=== PATIENT | female | born 1965 | race African-American/Black ===

== ENCOUNTER 2016-12-12 17:05 | Emergency (ER) | payer OTHER ==
[~2016-12-12] VITALS: Ht 170.2 cm; Wt 115.1 kg
[~2016-12-12 17:05] MED LIST: HYDR25TA6 PO
[2016-12-12 17:07] VITALS: BP 173/105
[2016-12-12] MEDS ORDERED: OXYcodone/APAP 5/325MG TABLET ONE (17:24)
[2016-12-12] MEDS ORDERED: ONDANSETRON ODT 4 MG ONE (17:24)
[2016-12-12] MEDS ORDERED: OXYcodone/APAP 5/325MG TABLET PO ONE (17:30)
[2016-12-12] MEDS ORDERED: ONDANSETRON 2MG/ML, 2ML IVPush ONE (17:30)
[2016-12-12] MEDS ORDERED: ONDANSETRON ODT 4 MG PO ONE (17:30)
== END 2016-12-12 18:34 | disposition home or self-care (01) ==
LOC: ED 18:11
DX: T20.16XA Burn of first degree of forehead and cheek, initial encounter (principal); T31.0 Burns involving less than 10% of body surface; I10 Essential (primary) hypertension; F17.200 Nicotine dependence, unspecified, uncomplicated; Z88.2 Allergy status to sulfonamides
CPT/HCPCS: 99283; Q0162

== ENCOUNTER 2018-04-08 20:38 | Emergency (ER) | payer OTHER ==
[~2018-04-08] VITALS: Ht 170.2 cm; Wt 119.7 kg
[2018-04-08] MEDS ORDERED: SODIUM CHLORIDE 0.9% 1,000 ML IV ONE (21:02)
[2018-04-08] MEDS ORDERED: SODIUM CHLORIDE FLUSH 10ML SYR IVF ONE (21:30)
[2018-04-08] MEDS ORDERED: ONDANSETRON 2MG/ML, 2ML IVPush ONE (21:30)
[2018-04-08] MEDS ORDERED: HYDROmorphone 2 MG/ML, 1ML IVPush PRN (21:30)
[2018-04-08] MEDS ORDERED: SODIUM CHLORIDE 0.9% 1,000ML IVBOLUS ONE (21:30)
[2018-04-08] MEDS ORDERED: HYDROmorphone 2 MG/ML, 1ML ONE (21:33)
[2018-04-08] MEDS ORDERED: ONDANSETRON 2MG/ML, 2ML ONE (21:33)
[2018-04-08 21:37] LABS: BASOPHILS # (AUTO) 0.02 x10^3/uL (0-0.1); BASOPHILS % (AUTO) 0 % (0-1); EOSINOPHILS # (AUTO) 0.02 x10^3/uL (0-0.4); EOSINOPHILS % (AUTO) 0 % (1-7); LYMPHOCYTES # (AUTO) 1.58 x10^3/uL (1-3.4); LYMPHOCYTES % (AUTO) 13 % (22-44); MD NO; MEAN CORPUSCULAR HEMOGLOBIN 25.8 pg (27.0-34.8); MEAN CORPUSCULAR HGB CONC 33.4 g/dL (32.4-35.8); MEAN CORPUSCULAR VOLUME 77.2 fL (80-100); MEAN PLATELET VOLUME 8.3 fL (7.4-10.4); MONOCYTES # (AUTO) 0.82 x10^3/uL (0.2-0.8); MONOCYTES % (AUTO) 7 % (2-9); NEUTROPHILS # (AUTO) 9.45 x10^3/uL (1.8-6.8); NEUTROPHILS % (AUTO) 80 % (42-75); PLATELET COUNT 259 x10^3/uL (130-400); RED BLOOD COUNT 5.28 x10^6/uL (3.82-5.3); RED CELL DISTRIBUTION WIDTH 15.1 % (9.6-15.2)
[2018-04-08 21:47] LABS: ALANINE AMINOTRANSFERASE 20 U/L (12-78); ANION GAP 10 mmol/L (5-15); CALCIUM 8.6 mg/dL (8.5-10.1); CHLORIDE 104 mmol/L (98-107); CREATININE 0.89 mg/dL (0.55-1.02)
[2018-04-08 21:50] LABS: ALKALINE PHOSPHATASE 80 U/L (45-117); BILIRUBIN,TOTAL 0.6 mg/dL (0.2-1.0); TOTAL PROTEIN 7.4 g/dL (6.4-8.2)
[2018-04-08] MEDS ORDERED: ACETAMINOPHEN 500 MG TABLET ONE (22:42)
[2018-04-08 22:56] LABS: MICROSCOPIC INDICATED
[2018-04-08] MEDS ORDERED: ACETAMINOPHEN 500 MG TABLET PO ONE (23:00)
[2018-04-08 23:27] LABS: CULTURE INDICATED? NO
[2018-04-08 23:58] VITALS: BP 100/56
== END 2018-04-09 00:01 | disposition home or self-care (01) ==
LOC: ED 22:59
DX: N23 Unspecified renal colic (principal); R31.9 Hematuria, unspecified; B34.9 Viral infection, unspecified; I10 Essential (primary) hypertension
CPT/HCPCS: 36415; 74176; 80053; 81001; 83690; 85025; 93005; 96361; 96374; 96375; 99285; J1170; J2405; J7030

== ENCOUNTER 2020-01-05 20:46 | Emergency (ER) | payer OTHER ==
[~2020-01-05] VITALS: Ht 170.2 cm; Wt 104.0 kg
[2020-01-05 20:48] VITALS: BP 139/64
[2020-01-05] MEDS ORDERED: APAP/CODEINE 300/30MG TABLET ONE (21:14)
[2020-01-05] MEDS ORDERED: APAP/CODEINE 300/30MG TABLET PO PRN (21:30)
[2020-01-05 21:31] LABS: BASOPHILS # (AUTO) 0.02 x10^3/uL (0-0.1); BASOPHILS % (AUTO) 0 % (0-1); EOSINOPHILS # (AUTO) 0.33 x10^3/uL (0-0.4); EOSINOPHILS % (AUTO) 6 % (1-7); LYMPHOCYTES # (AUTO) 1.65 x10^3/uL (1-3.4); LYMPHOCYTES % (AUTO) 29 % (22-44); MD NO; MEAN CORPUSCULAR HEMOGLOBIN 27.1 pg (27.0-34.8); MEAN CORPUSCULAR HGB CONC 32.6 g/dL (32.4-35.8); MEAN CORPUSCULAR VOLUME 83.3 fL (80-100); MEAN PLATELET VOLUME 8.7 fL (7.4-10.4); MONOCYTES % (AUTO) 7 % (2-9); NEUTROPHILS # (AUTO) 3.36 x10^3/uL (1.8-6.8); NEUTROPHILS % (AUTO) 58 % (42-75); PLATELET COUNT 227 x10^3/uL (130-400); RED BLOOD COUNT 5.73 x10^6/uL (3.82-5.3); RED CELL DISTRIBUTION WIDTH 14.8 % (9.6-15.2)
[2020-01-05 21:37] LABS: ANION GAP 8 mmol/L (5-15); CHLORIDE 101 mmol/L (98-107); CREATININE 0.95 mg/dL (0.55-1.02)
[2020-01-05] MEDS ORDERED: POTASSIUM CHLORIDE 20 MEQ TAB.ER.PRT PO ONE (22:00)
[2020-01-05] MEDS ORDERED: POTASSIUM CHLORIDE 20 MEQ TAB.ER.PRT ONE (22:37)
== END 2020-01-05 22:40 | disposition home or self-care (01) ==
LOC: ED 21:16
DX: U07.1 COVID-19 (principal); J12.9 Viral pneumonia, unspecified; B34.9 Viral infection, unspecified; R50.9 Fever, unspecified; R05 Cough; M79.10 Myalgia, unspecified site; R51 Headache; R09.81 Nasal congestion; R00.0 Tachycardia, unspecified; I10 Essential (primary) hypertension
CPT/HCPCS: 36415; 71045; 80048; 85025; 87635; 93005; 99285

== ENCOUNTER 2020-01-22 19:43 | Emergency (ER) | payer OTHER ==
[~2020-01-22] VITALS: Ht 170.2 cm; Wt 106.8 kg
--- NOTE | 2020-01-22 20:42 | NUR ---
PT HERE FOR COUGH AND SOB X SEVERAL DAYS. VSS. PT HAS NO NEEDS AT THIS TIME. CALL LIGHT IN REACH
[2020-01-22 21:14] LABS: BASOPHILS # (AUTO) 0.19 x10^3/uL (0-0.1); BASOPHILS % (AUTO) 3 % (0-1); EOSINOPHILS # (AUTO) 0.42 x10^3/uL (0-0.4); EOSINOPHILS % (AUTO) 7 % (1-7); LYMPHOCYTES % (AUTO) 39 % (22-44); MD NO; MEAN CORPUSCULAR HEMOGLOBIN 26.9 pg (27.0-34.8); MEAN CORPUSCULAR HGB CONC 32.3 g/dL (32.4-35.8); MEAN CORPUSCULAR VOLUME 83.4 fL (80-100); MEAN PLATELET VOLUME 8.7 fL (7.4-10.4); MONOCYTES # (AUTO) 0.47 x10^3/uL (0.2-0.8); MONOCYTES % (AUTO) 7 % (2-9); NEUTROPHILS # (AUTO) 2.83 x10^3/uL (1.8-6.8); NEUTROPHILS % (AUTO) 44 % (42-75); PLATELET COUNT 222 x10^3/uL (130-400); RED BLOOD COUNT 5.22 x10^6/uL (3.82-5.3)
[2020-01-22 21:26] LABS: ALBUMIN 3.1 g/dL (3.4-5.0); ANION GAP 4 mmol/L (5-15); CALCIUM 8.5 mg/dL (8.5-10.1); CHLORIDE 109 mmol/L (98-107); CREATININE 0.82 mg/dL (0.55-1.02)
[2020-01-22 21:30] LABS: TROPONIN I < 0.015 ng/mL (0.000-0.045)
[2020-01-22] MEDS ORDERED: DEXAMETHASONE 4 MG TABLET ONE (21:59)
[2020-01-22] MEDS ORDERED: ACETAMINOPHEN 325 MG TABLET PO ONE (22:00)
[2020-01-22] MEDS ORDERED: ALBUTEROL/IPRATROPIUM 2.5MG/0.5MG, 3 ML ONE (22:00)
[2020-01-22] MEDS ORDERED: ACETAMINOPHEN 325 MG TABLET ONE (22:00)
[2020-01-22] MEDS ORDERED: DEXAMETHASONE 4 MG TABLET PO ONE (22:00)
[2020-01-22] MEDS ORDERED: ALBUTEROL SULFATE 2.5 MG/3 ML NPPB ONE (22:00)
[2020-01-22 22:08] VITALS: BP 153/70
--- NOTE | 2020-01-22 22:08 | NUR ---
PT MEDICATED AND NEB TREATMENT STARTED. PT UPDATED ON POC. VSS. CALL LIGHT IN REACH
--- NOTE | 2020-01-22 22:37 | NUR ---
Patient given discharge instructions and they have confirmed that they understand the instructions. Patient ambulatory with steady gait.
== END 2020-01-22 22:50 | disposition home or self-care (01) ==
LOC: ED 22:00
DX: B34.9 Viral infection, unspecified (principal); R00.0 Tachycardia, unspecified; I10 Essential (primary) hypertension; F17.200 Nicotine dependence, unspecified, uncomplicated
CPT/HCPCS: 36415; 71045; 80048; 82040; 84484; 85025; 93005; 94640; 99285; J7613